=== PATIENT | male | born 1945 | race Caucasian/White ===

== ENCOUNTER 2018-04-06 13:01 | Inpatient (IN) ==
[2018-04-06] MEDS ORDERED: ALBUTEROL/IPRATROPIUM 2.5mg-0.5mg/3ml NEB IH ONE (13:20)
[2018-04-06] MEDS ORDERED: LEVOFLOXACIN PB 750 MG/150 ML BAG IV ONE (13:20)
[2018-04-06] MEDS ORDERED: METHYLPREDNISOLONE SOD SUCC 125mg/2ml INJECTION IVP ONE (13:20)
[2018-04-06] MEDS: SALINE FLUSH 10ml SYRINGE IVF PRN ×3 (13:29→17:08)
[2018-04-06] MEDS ORDERED: IOHEXOL 350mg/ml 75ml INJECTION ONE (13:37)
[2018-04-06] MEDS ORDERED: SALINE FLUSH 10ml SYRINGE ONE (13:37)
--- NOTE | 2018-04-06 13:52 | Emergency Department Report ---
SOB HPI - General Chief Complaint: Shortness of Breath/Dyspnea Stated Complaint: diff breathing Time Seen by Provider: 04/06/18 13:13 Source: patient, family, RN notes reviewed, old records reviewed, other ( Oncologist) - History of Present Illness 72yo man presents to the ER today for evaluation of dyspnea. Pt has a long h/o COPD; was recently dx'ed with a right lung cancer. Pt has not yet started treatment for the cancer. Overnight, pt developed dyspnea, tachypnea, a hacking cough, and air hunger. Pt presented to the ER today at his oncologist's request. MD Complaint: shortness of breath Onset (ago): hour(s) Context: recent illness Severity: severe Consistency/Duration: constant Relieving factors: oxygen, rest, bronchodilators Exacerbating factors: lying flat, exertion, movement, coughing Known history of: COPD, other (Lung CA) Associated symptoms: cough, wheezing, sputum production, other (pleuritic pain) Treatment prior to arrival: oxygen - Related Data Home Medications Medication Instructions Recorded Confirmed Albuterol Sulfate [Proair Hfa] 2 puff INH TID PRN #0 04/21/16 04/06/18 Tiotropium [place] [Spiriva 1 unit INH DAILY #0 06/04/16 04/06/18 Respimat] diphenhydrAMINE HCl [Benadryl] 25 mg PO HS #0 cap 06/04/16 04/06/18 Cholecalciferol (Vitamin D3) 1 cap PO DAILY 06/05/17 04/06/18 [Vitamin D3] Vitamin B Complex Vit C No.4 150 mg PO DAILY 06/05/17 04/06/18 [Super B Complex] Amoxicillin 875 mg PO BID 04/06/18 04/06/18 Folic Acid 0.4 mg PO DAILY 04/06/18 04/06/18 Hydrocodone/Chlorphen P-Stirex 5 ml PO BID PRN 04/06/18 04/06/18 [Hydrocodone-Chlorphen ER Susp] Omeprazole 20 mg PO DAILY 04/06/18 04/06/18 Simvastatin [Zocor] 40 mg PO HS 04/06/18 04/06/18 Tramadol [Ultram] 50 mg PO Q4HR PRN 04/06/18 04/06/18 Allergies Allergy/AdvReac Type Severity Reaction Status Date / Time alprazolam Allergy Unknown RASH Verified 04/06/18 14:11 clonazepam Allergy Unknown RASH Verified 04/06/18 14:11 succinylcholine AdvReac Severe paralysis Verified 04/06/18 14:11 Review of Systems All systems: reviewed and negative except as stated Respiratory: Reports: as per HPI, cough, dyspnea, wheezes. Denies: hemoptysis, stridor PFSH Patient Stated Medical History Cataracts Yes Chronic Obstructive Pulmonary Yes Disease (COPD) Pneumonia Yes Gastroesophageal Reflux Yes: controlled Disease - Social History Smoking status: Former smoker second hand exposure: No Substance use type: does not use Alcohol intake frequency: does not drink Does patient use chewing tobacco?: No Physical Exam - Limitations Limitations: no limitations - General General appearance: alert, in no apparent distress - Normal Exams: Head:: Normocephalic without trauma Eyes:: Pupils are PERRLA w/ EOMI, No scleral icterus, irritation, or foreign bodies noted ENMT:: No facial trauma, nasal exudates, pharyngeal erythema, or exudates are noted Neck:: Full range of motion, without adenopathy Lymphatic:: No lymphadenopathy Musculoskeletal:: No tenderness, or deformity noted Integumentary:: No rashes, hives, or bruising noted Neurological:: Patient is alert, and oriented Psychiatric:: Patient exhibits, appropriate attention - Chest Chest inspection: Present: normal inspection, symmetric chest wall rise. Absent : tenderness, rash - Respiratory Respiratory exam: Present: wheezes, prolonged expiratory phase, crackles. Absent: normal lung sounds bilaterally, respiratory distress, stridor - Cardiovascular Cardiovascular exam: Present: regular rate, normal rhythm, normal heart sounds. Absent: rubs, gallop, clicks - Abdominal Exam Abdominal exam: Present: soft, normal bowel sounds. Absent: distention, tenderness, guarding, rebound, rigidity Course - Consultations Consultation #1: Dr. Hernandez: Will admit for further evaluation and treatment. Time: 15:43 Vital Signs Respiratory Rate 24 04/06/18 13:44 Pulse Oximetry 94 04/06/18 13:44 Respiratory Rate 24 04/06/18 13:44 Pulse Oximetry 94 04/06/18 13:44 Shortness of Breath/Dyspnea - [facility] Narrative Medical decision making narrative: Pt with elevated white count without bandemia, no lactate, and no evidence of sepsis. Pt does have a new-onset O2 requirement. After discussion with Oncologist and Hospitalist will admit pt for further eval and treatment. - Differential Diagnosis Likely: acute exacerbation of chronic obstructive airways disease, congestive heart failure, community acquired pneumonia, pulmonary embolism - Medical Records Attestation: I reviewed the patient's medical records. - Lab Data Attestation: I reviewed the patient's lab results. Result diagrams: 04/06/18 13:31 04/06/18 13:31 Lab Results 04/06/18 Range/Units 13:37 Sample Site L radial ABG pH 7.426 (7.350-7.450) ABG pCO2 39 (34.0-45.0) MMHG ABG pO2 75.2 L (80.0-100.0) MMHG ABG HCO3 25.4 (22.0-26.0) MEQ/L ABG Total CO2 26.6 (23.0-27.0) MEQ/L ABG O2 Saturation 95.3 (95.0-98.0) % ABG Base Excess 1.0 (-2.0-2.0) MMOL/L O2 Delivery Method Cannula FiO2 (liters per min) 2 LPM - Radiology Data Attestation: I reviewed the patient's radiology results. - EKG Data EKG #1 EKG attestation: Yes: I reviewed and interpreted this EKG. EKG shows normal: sinus rhythm, axis, intervals, ST-T waves Rate: tachycardia [place]/QRS: RBBB Disposition Clinical Impression: Hypoxemia Carcinoma of lung Qualifiers: Laterality: right Qualified Code(s): C34.91 - Malignant neoplasm of unspecified part of right bronchus or lung Disposition: [facility] Print Language: Hungarian Condition: Improved Prescriptions: No Action diphenhydrAMINE HCl [Benadryl] 25 mg PO HS #0 cap Simvastatin [Zocor] 40 mg PO HS Folic Acid 0.4 mg PO DAILY Amoxicillin 875 mg PO BID Hydrocodone/Chlorphen P-Stirex [Hydrocodone-Chlorphen ER Susp] 5 ml PO BID PRN PRN Reason: Prn Orders Tramadol [Ultram] 50 mg PO Q4HR PRN PRN Reason: Pain Albuterol Sulfate [Proair Hfa] 2 puff INH TID PRN #0 PRN Reason: Shortness Of Air Tiotropium [place] [Spiriva Respimat] 1 unit INH DAILY #0 Cholecalciferol (Vitamin D3) [Vitamin D3] 1 cap PO DAILY Vitamin B Complex Vit C No.4 [Super B Complex] 150 mg PO DAILY Omeprazole 20 mg PO DAILY Referrals: Rubin Reid MD [Primary Care Provider] - Time of Disposition: 15:55 - Seen By: physician
--- NOTE | 2018-04-06 15:02 | History & Physical Report ---
History of Present Illness Date: 04/06/18 Chief complaint: SOA HPI: Patient is a 72yo recently dx'd with lung cancer who presented to ER with c/o SOA. Pt developed increasing dyspnea and cough overnight and was instructed to present to ER today at the advice of his oncologist, Dr. Luo. Pt states "I felt like I was waterboarded." He reports he has had sxs for the past month or more, but they significantly worsened last night and "I wasn't sure if I was going to make it through the night." States Dr. Luo was planning to start chemo this week. He has a prostate nodule and a PSA which continues to rise and reports he has an upcoming appt with Dr. Berrios regarding this. Review of Systems All systems PM: 10-point ROS was reviewed, no additional remarkable complaints except (fatigue, soa, cough, diaphoresis) Past Medical History Medical History Updates: COPD, GERD, Diverticular disease, Stage 4 lung cancer, L sided prostate nodule, tubular adenoma, HLD Surgical History: T&A 1948. Colonoscopy - tubular adenoma with low-grade dysplasia 06/06. Ganglion cyst removal 1985 Family History: NO FH prostate or colon cancer Father-diverticulitis Brother-malignant tumor of the pharynx Maternal grandfather-leukemia Paternal grandmother -myocardial infarction Family History: As Above - Social History Smoking status: Former smoker (quit 2000. Smoked for 40 years) Substance use type: does not use Alcohol intake: former (quit 11/2016) Household members: spouse Current occupational status: retired Does patient use chewing tobacco?: No Current residence: Apartment/Private Home Social history: PCP - Dr. Reid Onc - Dr. Luo Uro - Dr. Berrios Medications Home Medications Medication Instructions Recorded Confirmed Type Albuterol Sulfate [Proair Hfa] 2 puff INH TID PRN #0 04/21/16 04/06/18 History Tiotropium [place] [Spiriva 1 unit INH DAILY #0 06/04/16 04/06/18 History Respimat] diphenhydrAMINE HCl [Benadryl] 25 mg PO HS #0 cap 06/04/16 04/06/18 History Cholecalciferol (Vitamin D3) 1 cap PO DAILY 06/05/17 04/06/18 History [Vitamin D3] Vitamin B Complex Vit C No.4 150 mg PO DAILY 06/05/17 04/06/18 History [Super B Complex] Amoxicillin 875 mg PO BID 04/06/18 04/06/18 History Folic Acid 0.4 mg PO DAILY 04/06/18 04/06/18 History Hydrocodone/Chlorphen P-Stirex 5 ml PO BID PRN 04/06/18 04/06/18 History [Hydrocodone-Chlorphen ER Susp] Omeprazole 20 mg PO DAILY 04/06/18 04/06/18 History Simvastatin [Zocor] 40 mg PO HS 04/06/18 04/06/18 History Tramadol [Ultram] 50 mg PO Q4HR PRN 04/06/18 04/06/18 History Allergies Allergy/AdvReac Type Severity Reaction Status Date / Time alprazolam Allergy Unknown RASH Verified 04/06/18 14:11 clonazepam Allergy Unknown RASH Verified 04/06/18 14:11 succinylcholine AdvReac Severe paralysis Verified 04/06/18 14:11 Exam Vital Signs: Temperature 97.4 F 04/06/18 13:03 Pulse Rate 114 H 04/06/18 14:30 Respiratory Rate 27 H 04/06/18 14:30 Blood Pressure 131/77 04/06/18 13:48 Pulse Oximetry 94 04/06/18 14:30 Height/Weight/BMI: Height 1.83 m Weight 87.9 kg - Constitutional Present: no acute distress, well nourished, well developed - Routine HEENT Exam Head: Present: normocephalic, atraumatic Eye: Present: EOMI, PERRL ENT: Present: mucous membranes moist, oropharynx clear - Routine Neck Exam Absent: lymphadenopathy, thyromegaly - Routine Respiratory Exam Present: wheezes (coarse throughout with some crackles in RLL) - Routine Cardiovascular Exam Present: RRR, no murmur - Routine Abdominal Exam Present: soft, normoactive bowel sounds. Absent: tenderness, distended - Routine Extremities Exam Present: edema (1+ B/l LE's), normal capillary refill - Routine Skin Exam Present: dry, warm - Routine Neurological Exam Present: alert, oriented X3, CN II-XII intact - Routine Psychiatric Exam Present: normal affect, cooperative Results - Labs CBC & Chem 7: 04/06/18 13:31 04/06/18 13:31 Labs: Laboratory Tests 04/06/18 13:31 Calcium 9.8 Total Bilirubin 0.50 AST 32 ALT 34 Alkaline Phosphatase 156 H Troponin I < 0.012 NT-Pro-B Natriuret Pep 140 Total Protein 7.2 Albumin 3.6 Globulin 3.6 Albumin/Globulin Ratio 1.0 L Plasma Lactate 1.3 Microbiology Results: Microbiology 04/06/18 13:31 Peripheral/Iv Start Blood Culture - Preliminary Culture Initiated - Results Pending 04/06/18 13:45 Peripheral/Iv Start Blood Culture - Preliminary Culture Initiated - Results Pending - ABG Interpretation ABG results: 04/06/18 13:37 ABG pH 7.426 ABG pCO2 39 ABG pO2 75.2 L ABG HCO3 25.4 ABG Total CO2 26.6 ABG O2 Saturation 95.3 ABG Base Excess 1.0 - Imaging and Cardiology CTA chest Additional comments: 1. No evidence for pulmonary embolus. 2. Findings consistent with patient's known right-sided lung carcinoma and presumed post obstructive pneumonitis right lower lobe. Scattered pulmonary nodules are consistent with metastatic disease. PETscan Additional comments: 03/14/18 Impression: 1. Findings of a right hilar area primary lung malignancy with local and regional chanel metastatic disease along with multiple pulmonary metastases. 2. Indeterminate uptake in the left posterior iliac region. Assessment and Plan Assessment and Plan: Assessment Acute respiratory failure with hypoxia Postobstructive pneumonitis/pneumonia Stage 4 Lung cancer SIRS: Tachypnea/Tachycardia/Leukocytosis - POA Anemia COPD GERD Diverticular disease L sided prostate nodule Tubular adenoma w/ low grade dysplasia HLD Plan Admit, IP. Expect LOS to exceed 2 overnights given his acute resp failure requiring O2 and his underlying lung cancer and COPD. CTA chest from ER reviewed. Solumedrol 125mg IV and Levaquin 750mg IV given in ER in addition to Duoneb treatment. Continue Solumedrol and Levaquin. Duonebs, Budesonide, O2. Consult to Dr. Luo. Labs in am - CBC, CMP, LDH and uric acid. SCD's for VTE ppx Full Code. Dr Reid - PCP. Dr. Luo - Onc. DVT Prophylaxis: SCD's GI Prophylaxis: Omeprazole Resuscitation Status: Full Code - Physician Narrative Physician: Gilmer Hernandez MD Narrative: Date: 04/06/18 Time: 1753 Have independently interviewed and examined pt. Chart reviewed. Case discussed with Dr Luo, ED provider, and my PA. Care plan developed with my supervision ; agree with above. Presents to ED secondary to progressive increasing dyspnea. Becoming more SOA and congested with activities. Coughs, but not able to mobilize sputum. Chest wall sore from coughing. Notes f/c off and on. Appetite decreasing and has been losing weight. No nausea. Bowels stable. Notes HR increased. Recently found to have lung CA-anticipates starting treatment this week. Has mass nearly obstructing right main bronchus. With increasing dyspnea and symptoms, presents to ED. CTA without evidence for PE. WBC increased. Pt tachy. Admitted for treatment of lung cancer and post obstructive pneumonitis/pneumonia. Lung: decreased bilaterally, increased wheezing/congestion to left lungs. CV: tachy, regular AB: soft nt MSE: awake alert appropriate Plan: Inpatient admission for treatment of acute hypoxia and post obstructive pneumonitis/pneumonia. With significant tumor burden nearly obstructing right mainstem bronchus, will need Oncological evaluation and start treatment-doubt any gains will be made without Chemo or radiation. Levaquin for pulmonary coverage. Neb treatment. IVF for hydration and renal protection secondary to IV dye use. Monitor lab. Care to return to Dr Reid at time of discharge from [facility] [place]. Hospital Course Summary Disclaimer: The visit summary below is not to be considered part of the above Progress Note. Hospital Course: 04/06/18 Admit, IP. Expect LOS to exceed 2 overnights given his acute resp failure requiring O2 and his underlying lung cancer and COPD. CTA chest from ER reviewed. Solu-Medrol 125mg IV and Levaquin 750mg IV given in ER in addition to DuoNeb treatment. Continue Solu-Medrol and Levaquin. Continue with DuoNeb, Budesonide, O2. Consult to Dr. Luo for oncological evaluation and treatment recommendations. With significant tumor burden at right mainstem bronchus, doubt any gain gain be made without oncological intervention. IVF of 1/2NS for hydration and to provide renal protection secondary to IV contrast. Labs in am - CBC, CMP, LDH and uric acid. SCD's for VTE ppx. Full Code. Dr Reid - PCP. Dr. Luo - Onc.
[2018-04-06] MEDS ORDERED: ACETAMINOPHEN 325 MG TABLET PO PRN (16:41)
[2018-04-06] MEDS ORDERED: TRAMADOL 50 MG TABLET PO PRN (16:41)
[2018-04-06] MEDS ORDERED: BISACODYL 10 MG SUPPOSITORY RECTALLY PRN (16:41)
[2018-04-06 16:43] VITALS: BMI 26.4
[2018-04-06] MEDS: 1/2 NS 1,000 ML IV SCH (17:11)
[2018-04-06] MEDS: BUDESONIDE INH.SOLN 0.5mg/2ml NEB AEROSOL SCH (18:00)
[2018-04-06] MEDS: ALBUTEROL/IPRATROPIUM 2.5mg-0.5mg/3ml NEB AEROSOL SCH (18:00)
[2018-04-06] MEDS: ALBUTEROL/IPRATROPIUM 2.5mg-0.5mg/3ml NEB AEROSOL PRN (22:26)
[2018-04-06] MEDS: DiphenhydrAMINE 25 MG CAPSULE PO SCH (22:49)
[2018-04-06] MEDS: METHYLPREDNISOLONE SOD SUCC 125mg/2ml INJECTION IVP SCH (22:49)
[2018-04-06] MEDS: SIMVASTATIN 40 MG TABLET PO SCH (23:18)
[2018-04-06] MEDS: GUAIFENESIN/D-METHORPHAN 600mg/30mg TABLET PO SCH (23:19)
[2018-04-07] MEDS: ALBUTEROL/IPRATROPIUM 2.5mg-0.5mg/3ml NEB AEROSOL PRN (03:54)
[2018-04-07] MEDS: METHYLPREDNISOLONE SOD SUCC 125mg/2ml INJECTION IVP SCH ×4 (04:02→22:05)
--- NOTE | 2018-04-07 06:38 | Consult Note ---
<Lyssa Godinez - Last Filed: 04/08/18 07:30> Oncology HPI - Data of Consult Patient: new to practice Consult date: 04/07/18 Requesting Physician: Gilmer Hernandez MD Primary Care Provider: Rubin Reid MD - Consult Narrative History of present illness: 72-year-old male, seen recently as new patient for non-small cell lung cancer has received education on anticipated treatment with carboplatin/Keytruda/Alimta , which was to begin next week. Over the weekend had significant increase in dyspnea, increased cough, and air hunger. Spoke with Dr. Luo; instructed to come to the ER. Noted to have elevated white count, no bandemia, no lactate, but new hypoxia requiring oxygen. Found to have post obstructive pneumonia, admitted for supportive care and continued evaluation. At time of intake, he is sitting in a chair. Subjectively verbalizes improved with steroids and antibiotics. Has been seen by radiation oncologist, Dr. Spring; planning to begin radiation therapy. History of Present Illness --Prostate cancer [place] score 6 currently on active surveillance. September PSA 3.8 --03/05/18: CT scan showing mass in the right lower lobe. --03/14/18: PET scan showing uptake in the primary mass, mediastinal nodes, supraclavicular node, other lung nodules and indeterminate uptake in the left posterior iliac region. --03/20/18: Bronchoscopy with biopsy showing a moderately differentiated adenocarcinoma Review of Systems - Constitutional Constitutional: Present: fatigue, weakness - EENT Eyes: Absent: diplopia Mouth/Throat: Absent: sore throat - Cardiovascular Cardiovascular: Present: chest pain (mild chest wall pain with deep inspirations.), dyspnea on exertion - Respiratory Respiratory: Present: cough, dyspnea, dyspnea on exertion - Gastrointestinal Gastrointestinal: Absent: constipation, diarrhea, nausea - Genitourinary Genitourinary: Absent: dysuria, hematuria - Musculoskeletal Musculoskeletal: Absent: arthralgias - Neurological Neurological: Present: weakness. Absent: vertigo - Psychiatric Psychiatric: Absent: anxiety, depression PFSH Patient Stated Medical History Cataracts Yes: bilateral Hearing Loss Yes Chronic Obstructive Pulmonary Yes Disease (COPD) Pneumonia Yes: lots in the past Gastroesophageal Reflux Yes: controlled Disease Other GI Yes: umbilical hernia Hx Incontinence Yes Family History: Paternal cousin w/ bone cancer. Maternal GF had leukemia. No other cancers. Medications Home Medications Medication Instructions Recorded Confirmed Type Albuterol Sulfate [Proair Hfa] 2 puff INH TID PRN #0 04/21/16 04/06/18 History Tiotropium [place] [Spiriva 1 unit INH DAILY #0 06/04/16 04/06/18 History Respimat] diphenhydrAMINE HCl [Benadryl] 25 mg PO HS #0 cap 06/04/16 04/06/18 History Cholecalciferol (Vitamin D3) 1 cap PO DAILY 06/05/17 04/06/18 History [Vitamin D3] Vitamin B Complex Vit C No.4 150 mg PO DAILY 06/05/17 04/06/18 History [Super B Complex] Hydrocodone/Chlorphen P-Stirex 5 ml PO BID PRN 04/06/18 04/06/18 History [Hydrocodone-Chlorphen ER Susp] Omeprazole 20 mg PO DAILY 04/06/18 04/06/18 History Simvastatin [Zocor] 40 mg PO HS 04/06/18 04/06/18 History Tramadol [Ultram] 50 mg PO Q4HR PRN 04/06/18 04/06/18 History Acetaminophen [Tylenol] 650 mg PO Q5H PRN tab 04/09/18 Rx Albuterol/Ipratropium [Duoneb] 3 ml AEROSOL Q4H PRN #120 each 04/09/18 Rx Albuterol/Ipratropium [Duoneb] 3 ml AEROSOL Q4HR #120 each 04/09/18 Rx Folic Acid [Folate] 0.5 mg PO DAILY #30 tab 04/09/18 Rx Guaifenesin/Dm [Mucinex Dm] 1 tab PO BID #30 tab 04/09/18 Rx Levofloxacin [Levaquin] 750 mg PO DAILY 4 Days #4 tab 04/09/18 Rx PredniSONE [Deltasone 20 mg] 40 mg PO WB 5 Days #10 tab 04/09/18 Rx Allergies Allergy/AdvReac Type Severity Reaction Status Date / Time alprazolam Allergy Unknown RASH Verified 04/06/18 14:11 clonazepam Allergy Unknown RASH Verified 04/06/18 14:11 succinylcholine AdvReac Severe paralysis Verified 04/06/18 14:11 Exam Vital signs: Temperature 96.3 F L 04/07/18 07:15 Pulse Rate 107 H 04/07/18 07:20 Respiratory Rate 16 04/07/18 10:54 Blood Pressure 141/78 H 04/07/18 07:15 Pulse Oximetry 93 04/07/18 10:54 - Constitutional no acute distress, well nourished, well developed - Routine HEENT Exam Head: Present: normocephalic Eye: Present: EOMI ENT: Present: mucous membranes moist - Routine Neck Exam Present: supple. Absent: lymphadenopathy - Routine Respiratory Exam Present: decreased breath sounds. Absent: wheezes, crackles - Routine Cardiovascular Exam Present: RRR, no murmur - Routine Abdominal Exam Present: soft, normoactive bowel sounds, non tender. Absent: mass - Routine Extremities Exam Present: no edema, full ROM - Routine Skin Exam Present: intact, dry - Routine Neurological Exam Present: alert, oriented X3, normal speech - Routine Psychiatric Exam Present: normal affect, cooperative Oncology Results - Labs CBC & Chem 7: 04/07/18 03:38 04/07/18 03:38 Labs: Short CBC 04/07/18 Range/Units 03:38 WBC 8.1 (4.5-11.0) T/MM3 Hgb 10.9 L (13.5-17.5) GM/DL Hct 35.0 L (41-53) % Plt Count 324 (130-400) T/MM3 [facility] 04/07/18 03:38 Sodium 139 Potassium 4.1 Chloride 99 Carbon Dioxide 27 BUN 19.0 Creatinine 0.7 L D Glucose 137 H Calcium 9.1 - Impressions Encounter: Subsequent Comparison: Pulmonary CT angiogram 04/06/2018, chest CT 03/05/2018 Technique: Contiguous axial CT images were obtained of the chest without intravenous contrast. Coronal and sagittal reformatted images were also obtained. Automated Exposure Control and Iterative Reconstruction dose reducing techniques were utilized. Findings: Lungs and airways: Bilateral upper lobe predominant paraseptal emphysema. Grossly unchanged large right hilar mass extending into the right middle and lower lobes with post obstructive atelectasis/pneumonitis within the right lower lobe and significant narrowing of the right mainstem bronchus. No endoluminal lesion. Unchanged scattered small pulmonary nodules. Pleura: Trace loculated right pleural effusion. No pneumothorax. Heart and mediastinum: The visualized thyroid gland appears normal. Unchanged prominent right superior retrotracheal lymph node on axial image 32. Unchanged prominent right lower paratracheal lymph node on axial image 53. The visualized esophagus appears normal. The heart is normal in size without pericardial effusion. Coronary arterial and thoracic aortic atherosclerotic calcifications. The great vessels of the thorax are otherwise within normal limits. Abdomen: No acute abnormality of the visualized upper abdominal organs. Osseous structures and soft tissues: No axillary lymphadenopathy. No acute osseous abnormality. No suspicious osteolytic or osteoblastic lesions. Impression: 1. Redemonstration of a large right hilar mass extending into the right middle and lower lobes with significant narrowing of the right mainstem bronchus and postobstructive atelectasis/pneumonitis within the right lower lobe. 2. Unchanged scattered small pulmonary nodules and prominent right paratracheal lymph nodes. 3. Trace loculated right pleural effusion. . Assessment and Plan Assessment and Plan: Seen by Dr. Spring, noted extrinsic and intrinsic obstruction of the right mainstem bronchus; recommends emergency radiation treatment directed to alleviate airway obstruction. Plan to begin this today. Continue supportive care and follow counts. <Ritesh Luo - Last Filed: 04/11/18 18:10> Oncology HPI - Data of Consult Requesting Physician: Gilmer Hernandez MD Primary Care Provider: Rubin Reid MD [facility] Patient Stated Medical History Cataracts Yes: bilateral Hearing Loss Yes Chronic Obstructive Pulmonary Yes Disease (COPD) Pneumonia Yes: lots in the past Gastroesophageal Reflux Yes: controlled Disease Other GI Yes: umbilical hernia Hx Incontinence Yes Medical History Updates: COPD, GERD, Diverticular disease, Stage 4 lung cancer, L sided prostate nodule, tubular adenoma, HLD Surgical History: T&A 1948. Colonoscopy - tubular adenoma with low-grade dysplasia 06/06. Ganglion cyst removal 1985 - Social History Smoking status: Former smoker second hand exposure: No Substance use type: does not use Alcohol intake: former (quit 11/2016) Alcohol intake frequency: does not drink Household members: spouse Current occupational status: retired Does patient use chewing tobacco?: No Current residence: Apartment/Private Home Exam Vital signs: Temperature 95.7 F L 04/06/18 16:55 Pulse Rate 101 H 04/06/18 23:18 Respiratory Rate 18 04/07/18 03:55 Blood Pressure 131/80 04/06/18 23:18 Pulse Oximetry 94 04/07/18 03:55 Oncology Results - Labs CBC & Chem 7: 04/08/18 04:05 04/08/18 04:05 Labs: Short CBC 04/07/18 Range/Units 03:38 WBC 8.1 (4.5-11.0) T/MM3 Hgb 10.9 L (13.5-17.5) GM/DL Hct 35.0 L (41-53) % Plt Count 324 (130-400) T/MM3 BMP 04/07/18 03:38 Sodium 139 Potassium 4.1 Chloride 99 Carbon Dioxide 27 BUN 19.0 Creatinine 0.7 L D Glucose 137 H Calcium 9.1 Assessment and Plan Assessment and Plan: Stage IV non-small cell carcinoma of the lung, adenocarcinoma, large mass in the right lower lobe that is causing obstruction of the right mainstem bronchus and postobstructive pneumonia. Scans have worsened since 03/04/18. Seems to be a greater postobstructive component. Much better today after starting antibiotics and steroids. Multiple lung nodules. These are consistent with metastatic disease. May benefit from XRT to open up the bronchus Will consult Dr. Spring 2. Prostate cancer on active surveillance Recommendations. Antibiiotic Steroids Antineoplastic therapy when infection controlled. Plan for Keytruda, Alimta and Carboplatin Supportive care.
[2018-04-07] MEDS ORDERED: ALBUTEROL/IPRATROPIUM 2.5mg-0.5mg/3ml NEB AEROSOL PRN (06:45)
[2018-04-07] MEDS: OMEPRAZOLE 20 MG CAPSULE PO SCH (07:05)
[2018-04-07] MEDS: 1/2 NS 1,000 ML IV SCH (07:05)
--- NOTE | 2018-04-07 07:24 | CT Scan Report ---
Indication: Hypoxia, tachycardia, new dx lung CA PROCEDURE: CT angio pulm emboli: Encounter: Initial Comparison: Chest CT dated March 05, 2018 Technique: Axial CT pulmonary angiographic phase images were performed through the chest after the administration of intravenous contrast. Coronal and Sagittal MIP reconstructed images were created and reviewed. Automated Exposure Control and Iterative Reconstruction dose reducing techniques were utilized. Contrast: Omnipaque 350 62 mL Findings: Pulmonary arteries: Exam is diagnostic to the subsegmental pulmonary arterial level. No filling defects identified to suggest a pulmonary embolus. Right hilar mass with postobstructive atelectasis/pneumonia has increased in size with numerous surrounding small satellite masses, groundglass opacity in the small right effusion. This area measures 11.5 x 8.2 cm on axial image #35 compared to 8.4 x 7.2 cm when measured at a similar level on the comparison study. Multiple metastatic nodules seen in the left lower lobe and left upper lobe grossly stable. No pneumothorax. There is compression of the right mainstem bronchus and occlusion of several right lower lobe bronchi. No axillary adenopathy. Right hilar adenopathy. Heart size is stable. Small pericardial effusion. The upper abdomen shows no acute findings. Impression: No pulmonary embolus. Enlarging right hilar mass with right lower lobe postobstructive atelectasis/pneumonia and pulmonary and mediastinal chanel metastatic disease. There is a preliminary report by [email or web address]. .
[2018-04-07] MEDS: ALBUTEROL/IPRATROPIUM 2.5mg-0.5mg/3ml NEB AEROSOL SCH ×5 (07:45→23:48)
[2018-04-07] MEDS: BUDESONIDE INH.SOLN 0.5mg/2ml NEB AEROSOL SCH ×2 (07:45→19:56)
[2018-04-07] MEDS: FOLIC ACID 1 MG TABLET PO SCH (08:43)
[2018-04-07] MEDS: GUAIFENESIN/D-METHORPHAN 600mg/30mg TABLET PO SCH ×2 (08:43→22:05)
[2018-04-07] MEDS ORDERED: NON-FORMULARY MEDICATION 1 EACH EACH (Folic Acid [Folic Acid] 0.4 MG) PO SCH (09:00)
[2018-04-07] MEDS ORDERED: NON-FORMULARY MEDICATION 1 EACH EACH (Omeprazole [Omeprazole] 20 MG) PO SCH (09:00)
--- NOTE | 2018-04-07 11:58 | CT Scan Report ---
Indication: lung cancer Procedure: CT limited,localized follow-up: Encounter: Subsequent Comparison: Pulmonary CT angiogram 04/06/2018, chest CT 03/05/2018 Technique: Contiguous axial CT images were obtained of the chest without intravenous contrast. Coronal and sagittal reformatted images were also obtained. Automated Exposure Control and Iterative Reconstruction dose reducing techniques were utilized. Findings: Lungs and airways: Bilateral upper lobe predominant paraseptal emphysema. Grossly unchanged large right hilar mass extending into the right middle and lower lobes with post obstructive atelectasis/pneumonitis within the right lower lobe and significant narrowing of the right mainstem bronchus. No endoluminal lesion. Unchanged scattered small pulmonary nodules. Pleura: Trace loculated right pleural effusion. No pneumothorax. Heart and mediastinum: The visualized thyroid gland appears normal. Unchanged prominent right superior retrotracheal lymph node on axial image 32. Unchanged prominent right lower paratracheal lymph node on axial image 53. The visualized esophagus appears normal. The heart is normal in size without pericardial effusion. Coronary arterial and thoracic aortic atherosclerotic calcifications. The great vessels of the thorax are otherwise within normal limits. Abdomen: No acute abnormality of the visualized upper abdominal organs. Osseous structures and soft tissues: No axillary lymphadenopathy. No acute osseous abnormality. No suspicious osteolytic or osteoblastic lesions. Impression: 1. Redemonstration of a large right hilar mass extending into the right middle and lower lobes with significant narrowing of the right mainstem bronchus and postobstructive atelectasis/pneumonitis within the right lower lobe. 2. Unchanged scattered small pulmonary nodules and prominent right paratracheal lymph nodes. 3. Trace loculated right pleural effusion. .
[2018-04-07] MEDS: LEVOFLOXACIN PB 750 MG/150 ML BAG IV SCH (13:05)
--- NOTE | 2018-04-07 16:32 | Progress Note ---
- Date 04/07/18 Subjective: Patient seen sitting in his room this afternoon. He reports he is feeling much better since admission. He still has a decent amount of pain when he coughs, but he feels he can breathe better. He had an appt with the radiation oncologist this am and had his first round of radiation this afternoon. No n/v/f /c. Objective Vital signs: Temperature 97.6 F 04/07/18 16:00 Pulse Rate 113 H 04/07/18 16:00 Respiratory Rate 18 04/07/18 16:00 Blood Pressure 124/72 04/07/18 16:00 Pulse Oximetry 94 04/07/18 16:00 Height/Weight/BMI: Height 1.83 m Weight 88.8 kg Body Mass Index 26.4 - Constitutional Present: no acute distress, well nourished, well developed - Routine HEENT Exam Head: Present: normocephalic, atraumatic - Routine Respiratory Exam Present: decreased breath sounds (RLL), CTA bilaterally. Absent: wheezes - Routine Cardiovascular Exam Present: no murmur, tachycardia (mild) - Routine Abdominal Exam Present: soft, non distended, non tender - Routine Extremities Exam Present: no edema, normal capillary refill - Routine Skin Exam Present: dry, warm - Routine Neurological Exam Present: alert, oriented X3 - Routine Lymphatic Exam Lymphatic: Absent: adenopathy - Routine Psychiatric Exam Present: normal affect, cooperative Results - Labs CBC & Chem 7: 04/07/18 03:38 04/07/18 03:38 Assessment and Plan Assessment and Plan: Assessment Acute respiratory failure with hypoxia Postobstructive pneumonitis/pneumonia Stage 4 Lung cancer Significant narrowing of the right mainstem secondary to tumor bronchus SIRS: Tachypnea/Tachycardia/Leukocytosis - POA Anemia COPD GERD Diverticular disease Prostate cancer ([place] Score 6 - on active surveillance. (PSA 3.8 on 10/06) Tubular adenoma w/ low grade dysplasia HLD Plan Had "limited CT chest follow up" and first radiation treatment today. CT remains significant for large R hilar mass extending into the right middle/ lower lobes with significant narrowing of the R mainstem bronchus and postobstructive atelectasis/pneumonitis within the RLL. Continue IVF's for renal protection secondary to repeat IV dye use as pt had CTA performed yesterday as well. Consider DC IVF's later today or tomorrow as he has good renal function and is taking po well. Leukocytosis resolved 13.2-->8.1. BMP stable. Remains tachycardic. Other vitals stable. On room air this afternoon. (Not on home O2). Day 2 of Levaquin and methylprednisolone. Continue Duonebs, budesonide. DVT Prophylaxis: SCD's Resuscitation Status: Full Code - Time spent with patient Time with patient PN: 25 minutes - Physician Narrative Physician: Gilmer Hernandez MD Narrative: Date: 04/07/18 Time: 1826 Have independently interviewed and examined pt. Chart reviewed. Case discussed with my PA. Care plan developed with my supervision; agree with above. Doing well this evening. Breathing improving. Neb treatments very helpful-would like DuoNeb every 4 hours for benefit. Still cough/congestion. Less SOA with O2. Very encouraged about starting radiation to get at the root of his problem. Eating well. No ab pain or nausea. Bowels stable. Lungs: decreased, no distress CV: regular AB: soft nt/nd MSE: awake alert appropriate Plan: Continue with antibiotics, steroids, and Neb treatment. Very encouraging that radiation able to be started-critically needed secondary to tumor location. Can stop IVF. Monitor lab. Continue with supportive care. Hospital Course Summary Disclaimer: The visit summary below is not to be considered part of the above Progress Note. Hospital Course: 04/06/18 Admit, IP. Expect LOS to exceed 2 overnights given his acute resp failure requiring O2 and his underlying lung cancer and COPD. CTA chest from ER reviewed. Solu-Medrol 125mg IV and Levaquin 750mg IV given in ER in addition to DuoNeb treatment. Continue Solu-Medrol and Levaquin. Continue with DuoNeb, Budesonide, O2. Consult to Dr. Luo for oncological evaluation and treatment recommendations. With significant tumor burden at right mainstem bronchus, doubt any gain gain be made without oncological intervention. IVF of 1/2NS for hydration and to provide renal protection secondary to IV contrast. Labs in am - CBC, CMP, LDH and uric acid. SCD's for VTE ppx. Full Code. Dr Reid - PCP. Dr. Luo - Onc. 04/07/[address] chest follow up" and first radiation treatment today. CT remains significant for large R hilar mass extending into the right middle/ lower lobes with significant narrowing of the R mainstem bronchus and postobstructive atelectasis/pneumonitis within the RLL. Continue IVF's for renal protection secondary to repeat IV dye use as pt had CTA performed yesterday as well. Consider DC IVF's later today or tomorrow as he has good renal function and is taking po well. Leukocytosis resolved 13.2-->8.1. BMP stable. Remains tachycardic. Other vitals stable. On room air this afternoon. (Not on home O2). Day 2 of Levaquin and methylprednisolone.
[2018-04-07] MEDS: SIMVASTATIN 40 MG TABLET PO SCH (22:04)
[2018-04-07] MEDS: DiphenhydrAMINE 25 MG CAPSULE PO SCH (22:04)
[2018-04-07] MEDS: PROMETHAZINE/CODEINE ORAL LIQUID 5ml PO PRN (22:05)
[2018-04-08] MEDS: ALBUTEROL/IPRATROPIUM 2.5mg-0.5mg/3ml NEB AEROSOL SCH ×5 (03:38→22:51)
[2018-04-08] MEDS: METHYLPREDNISOLONE SOD SUCC 125mg/2ml INJECTION IVP SCH ×4 (04:13→22:02)
[2018-04-08] MEDS: OMEPRAZOLE 20 MG CAPSULE PO SCH (06:54)
[2018-04-08] MEDS: BUDESONIDE INH.SOLN 0.5mg/2ml NEB AEROSOL SCH ×2 (07:06→18:59)
[2018-04-08] MEDS: GUAIFENESIN/D-METHORPHAN 600mg/30mg TABLET PO SCH ×2 (08:26→22:02)
[2018-04-08] MEDS: FOLIC ACID 1 MG TABLET PO SCH (08:26)
[2018-04-08] MEDS: SALINE FLUSH 10ml SYRINGE IVF PRN ×2 (08:27→14:30)
--- NOTE | 2018-04-08 11:00 | Progress Note ---
<Lyssa Godinez L - Last Filed: 04/08/18 11:56> Oncology Subjective Sitting in chair. Alert/oriented. Reports 50% improvement in lung function/less shortness of breath/less coughing. No nausea/vomiting. No diarrhea constipation. General: No fever, no night sweats Eyes: No redness, no pain, no diplopia ENT: No mouth sores, no trouble swallowing Cardiac: No chest pain no palpitations Pulmonary: + cough, + shortness of breath, no wheezing Abdomen: No pain, no nausea vomiting, no diarrhea or constipation : No urgency, frequency, dysuria, or hematuria Musculoskeletal: No arthritis, no myalgias Neurological: No headaches, no focal weakness Skin: No rash, no sores Psychiatric: No anxiety, no depression Exam Vital signs: Temperature 97.6 F 04/08/18 07:56 Pulse Rate 96 04/08/18 08:03 Respiratory Rate 18 04/08/18 07:56 Blood Pressure 120/69 04/08/18 07:56 Pulse Oximetry 93 04/08/18 07:56 Narrative: Generic Name Dose Route Start Last Admin Trade Name Bonillaq PRN Reason Stop Dose Admin Acetaminophen 650 mg 04/06/18 16:41 Tylenol PO Q5H PRN Discomfort Albuterol/Ipratropium 3 ml 04/07/18 06:45 Duoneb AEROSOL Q4H PRN Shortness of air Albuterol/Ipratropium 3 ml 04/07/18 16:00 04/08/18 07:06 Duoneb AEROSOL 3 ml Q4HR OMAR Administration Bisacodyl 10 mg 04/06/18 16:41 Dulcolax RECTALLY DAILY PRN Constipation Budesonide 0.5 mg 04/06/18 19:00 04/08/18 07:06 Pulmicort Inhalation AEROSOL 0.5 mg RTBID OMAR Administration Diphenhydramine HCl 25 mg 04/06/18 21:00 04/07/18 22:04 Benadryl PO 25 mg HS OMAR Administration Folic Acid 0.5 mg 04/07/18 09:00 04/08/18 08:26 Folate PO 0.5 mg DAILY OMAR Administration Guaifenesin/Dextromethorphan 1 tab 04/06/18 21:00 04/08/18 08:26 Mucinex Dm PO 1 tab BID OMAR Administration Levofloxacin/Dextrose 750 mg in 150 mls @ 100 mls/hr 04/07/18 14:00 04/07/18 14:48 Levaquin 750 Mg Premix IV Infused Q24H OMAR Infusion Magnesium Hydroxide 30 ml 04/06/18 16:41 Mom PO DAILY PRN Constipation Methylprednisolone Sodium Succinate 125 mg 04/06/18 21:00 04/08/18 08:26 Solu-Medrol IVP 125 mg Q6HR OMAR Administration Omeprazole 20 mg 04/07/18 06:30 04/08/18 06:54 Prilosec PO 20 mg ACB OMAR Administration Promethazine HCl/Codeine 5 ml 04/06/18 16:41 04/07/18 22:05 Phenergan + Codeine PO 5 ml Q4H PRN Administration Cough Simvastatin 40 mg 04/06/18 21:00 04/07/18 22:04 Zocor PO 40 mg HS OMAR Administration Sodium Chloride 10 - 80 ml 04/06/18 13:20 04/08/18 08:27 Iv Flush IVF 10 ml PRN PRN Administration Flushing Tramadol HCl 50 mg 04/06/18 16:41 Ultram PO Q4H PRN Pain Discontinued Medications Generic Name Dose Route Start Last Admin Trade Name Freq PRN Reason Stop Dose Admin Albuterol/Ipratropium 3 ml 04/06/18 13:20 04/06/18 13:25 Duoneb IH 04/06/18 13:21 3 ml ONCE ONE Administration Albuterol/Ipratropium 3 ml 04/06/18 19:00 04/07/18 10:53 Duoneb AEROSOL 3 ml RTQID OMAR Administration Albuterol/Ipratropium 3 ml 04/06/18 16:41 04/07/18 03:54 Duoneb AEROSOL 3 ml Q4HR PRN Administration Shortness of air Levofloxacin/Dextrose 750 mg in 150 mls @ 100 mls/hr 04/06/18 13:20 04/06/18 15:46 Levaquin 750 Mg Premix IV 04/06/18 14:49 Infused O ONE Infusion Sodium Chloride 1,000 mls @ 75 mls/hr 04/06/18 16:41 04/07/18 19:08 1/2 Normal Saline IV Infused .[id number] OMAR Infusion Methylprednisolone Sodium Succinate 125 mg 04/06/18 13:20 06/17/18 13:34 Solu-Medrol IVP 04/06/18 13:21 125 mg O ONE Administration Non-Formulary Medication 0.4 mg 04/07/18 09:00 Folic Acid [Folic Acid] PO DAILY OMAR Non-Formulary Medication 20 mg 04/07/18 09:00 Omeprazole [Omeprazole] PO DAILY OMAR - Constitutional no acute distress, well developed, cooperative - Routine HEENT Exam Head: Present: normocephalic Eye: Present: EOMI ENT: Present: mucous membranes moist - Routine Neck Exam Present: supple. Absent: lymphadenopathy - Routine Respiratory Exam Present: decreased breath sounds (rhonchi bilateral posterior.), rhonchi. Absent: wheezes, crackles - Routine Cardiovascular Exam Present: RRR, no murmur - Routine Abdominal Exam Present: soft, non tender. Absent: mass - Routine Back/Spine/Pelvis Exam Back/Spine: Absent: vertebral tenderness - Routine Skin Exam Present: intact, dry. Absent: rash - Routine Neurological Exam Present: alert, oriented X3 - Routine Psychiatric Exam Present: normal affect, cooperative Oncology Results - Labs CBC & Chem 7: 04/08/18 04:05 04/08/18 04:05 Labs: Short CBC 04/08/18 Range/Units 04:05 WBC 13.3 H D (4.5-11.0) T/MM3 Hgb 11.7 L (13.5-17.5) GM/DL Hct 37.0 L (41-53) % Plt Count 338 (130-400) T/MM3 [facility] 04/08/18 04:05 Sodium 141 Potassium 3.8 Chloride 101 Carbon Dioxide 29 BUN 24.0 H Creatinine 0.8 Glucose 166 H Calcium 9.4 Assessment and Plan Assessment and Plan: 1. 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 Emergency radiation treatment directed to alleviate airway obstruction; initiated 04/07/18. 2. Prostate cancer on active surveillance 3. COPD Plan Continue supportive care, radiation treatment. Has not seen Dr. Melgar since bronchoscopy. Discussed w/ Dr. Luo and Dr. Salomon; she will send consult for pulmonology. Note, patient does not have home nebulizer. - Time Spent With Patient Total time spent is greater than 50% in coordination of care (as documented) at patient's floor/unit and/or counseling patient: less than 15 minutes <Ritesh Luo - Last Filed: 04/08/18 22:16> Exam Vital signs: Temperature 95.4 F L 04/08/18 15:44 Pulse Rate 84 04/08/18 16:01 Respiratory Rate 18 04/08/18 18:59 Blood Pressure 134/81 04/08/18 15:44 Pulse Oximetry 98 04/08/18 15:44 Oncology Results - Labs CBC & Chem 7: 04/08/18 04:05 04/08/18 04:05 Labs: Short CBC 04/08/18 Range/Units 04:05 WBC 13.3 H D (4.5-11.0) T/MM3 Hgb 11.7 L (13.5-17.5) GM/DL Hct 37.0 L (41-53) % Plt Count 338 (130-400) T/MM3 BMP 04/08/18 04:05 Sodium 141 Potassium 3.8 Chloride 101 Carbon Dioxide 29 BUN 24.0 H Creatinine 0.8 Glucose 166 H Calcium 9.4 Assessment and Plan Assessment and Plan: Patiient seen Chart Reviewed. Patient breathing easier after XRT. Will hold on chemotherapy as this may increase edema that may worsen breathing. Will continue supportive care and steroids. - Time Spent With Patient Total time spent is greater than 50% in coordination of care (as documented) at patient's floor/unit and/or counseling patient:
--- NOTE | 2018-04-08 13:03 | Pulmonology Consult Note ---
History of Present Illness Consult date: 04/08/18 Requesting physician: Donn Blanton Reason for consult: dyspnea, lung mass Chief complaint: shortness of breath History of present illness: Patient is a 72 year old with NSCLCA (adenocarcinoma) under the care of Dr Luo. He has GOLD stage B COPD, past smoking history. He presented to the ER with c/o SOA. Pt developed increasing dyspnea and cough overnight and was instructed to present to ER at the advice of his oncologist, Dr. Luo. Pt states "I felt like I was waterboarded." He reports he has had sxs for the past month or more, but they significantly worsened last night and "I wasn't sure if I was going to make it through the night." States Dr. Luo was planning to start chemo this week. He has a prostate nodule and a PSA which continues to rise and reports he has an upcoming appt with Dr. Berrios regarding this. Dr Luo reports 72-year-old male, seen recently as new patient for non-small cell lung cancer has received education on anticipated treatment with carboplatin/Keytruda/Alimta, which was to begin next week. Over the weekend had significant increase in dyspnea, increased cough, and air hunger. Spoke with Dr. Luo; instructed to come to the ER. Noted to have elevated white count, no bandemia, no lactate, but new hypoxia requiring oxygen. Found to have post obstructive pneumonia, admitted for supportive care and continued evaluation. At time of intake, he is sitting in a chair. Subjectively verbalizes improved with steroids and antibiotics. Has been seen by radiation oncologist, Dr. Spring; planning to begin radiation therapy. [facility] Patient Stated Medical History Cataracts Yes: bilateral Hearing Loss Yes Chronic Obstructive Pulmonary Yes Disease (COPD) Pneumonia Yes: lots in the past Gastroesophageal Reflux Yes: controlled Disease Other GI Yes: umbilical hernia Hx Incontinence Yes Medical History Updates: COPD, GERD, Diverticular disease, Stage 4 lung cancer, L sided prostate nodule, tubular adenoma, HLD Surgical History: T&A 1948. Colonoscopy - tubular adenoma with low-grade dysplasia 06/06. Ganglion cyst removal 1985 - Social History Smoking status: Former smoker second hand exposure: No Substance use type: does not use Alcohol intake: former (quit 11/2016) Alcohol intake frequency: does not drink Household members: spouse Current occupational status: retired Does patient use chewing tobacco?: No Current residence: Apartment/Private Home Medications Home Medications Medication Instructions Recorded Confirmed Type Albuterol Sulfate [Proair Hfa] 2 puff INH TID PRN #0 04/21/16 04/06/18 History Tiotropium [place] [Spiriva 1 unit INH DAILY #0 06/04/16 04/06/18 History Respimat] diphenhydrAMINE HCl [Benadryl] 25 mg PO HS #0 cap 06/04/16 04/06/18 History Cholecalciferol (Vitamin D3) 1 cap PO DAILY 06/05/17 04/06/18 History [Vitamin D3] Vitamin B Complex Vit C No.4 150 mg PO DAILY 06/05/17 04/06/18 History [Super B Complex] Amoxicillin 875 mg PO BID 04/06/18 04/06/18 History Folic Acid 0.4 mg PO DAILY 04/06/18 04/06/18 History Hydrocodone/Chlorphen P-Stirex 5 ml PO BID PRN 04/06/18 04/06/18 History [Hydrocodone-Chlorphen ER Susp] Omeprazole 20 mg PO DAILY 04/06/18 04/06/18 History Simvastatin [Zocor] 40 mg PO HS 04/06/18 04/06/18 History Tramadol [Ultram] 50 mg PO Q4HR PRN 04/06/18 04/06/18 History Allergies Allergy/AdvReac Type Severity Reaction Status Date / Time alprazolam Allergy Unknown RASH Verified 04/06/18 14:11 clonazepam Allergy Unknown RASH Verified 04/06/18 14:11 succinylcholine AdvReac Severe paralysis Verified 04/06/18 14:11 Exam Vital signs: Temperature 97.6 F 04/08/18 07:56 Pulse Rate 96 04/08/18 08:03 Respiratory Rate 18 04/08/18 07:56 Blood Pressure 120/69 04/08/18 07:56 Pulse Oximetry 93 04/08/18 07:56 - Constitutional no acute distress - Routine HEENT Exam Head: Present: normocephalic, atraumatic Eye: Present: EOMI ENT: Present: mucous membranes moist Nose: moist mucous membranes - Routine Respiratory Exam Present: prolonged expiratory phase, wheezes. Absent: accessory muscle use - Routine Cardiovascular Exam Present: RRR - Routine Abdominal Exam Present: soft. Absent: guarding - Routine Extremities Exam Absent: cyanosis, clubbing, edema - Routine Skin Exam Absent: cyanosis - Routine Neurological Exam Present: alert, oriented X3 Results - Laboratory Findings CBC and BMP: 04/08/18 04:05 04/08/18 04:05 ABG ABG pH 7.426 (7.350-7.450) 04/06/18 13:37 ABG pCO2 39 MMHG (34.0-45.0) 04/06/18 13:37 ABG pO2 75.2 MMHG (80.0-100.0) L 04/06/18 13:37 ABG O2 Saturation 95.3 % (95.0-98.0) 04/06/18 13:37 Abnormal lab findings: Abnormal Labs 04/07/18 04/07/18 04/07/18 03:38 03:38 03:38 WBC RBC 4.24 L Hgb 10.9 L Hct 35.0 L MCH 25.7 L Neutrophils % (Manual) 92.0 H Lymphocytes % (Manual) 6.0 L Metamyelocytes % 1.0 H Neutrophils # (Manual) Lymphocytes # (Manual) 0.5 L BUN Creatinine 0.7 L D BUN/Creatinine Ratio 27 H Glucose 137 H Carcinoembryonic Ag 4.19 H TSH 04/07/18 04/08/18 04/08/18 03:38 04:05 04:05 WBC 13.3 H D RBC 4.48 L Hgb 11.7 L Hct 37.0 L MCH Neutrophils % (Manual) 96.0 H Lymphocytes % (Manual) 4.0 L Metamyelocytes % Neutrophils # (Manual) 12.8 H Lymphocytes # (Manual) 0.5 L BUN 24.0 H Creatinine BUN/Creatinine Ratio 30 H Glucose 166 H Carcinoembryonic Ag TSH 0.34 L - Diagnostic Findings Chest x-ray: report reviewed, image reviewed CT scan - chest: report reviewed, image reviewed Assessment and Plan (1) Non-small cell cancer of right lung Status: Acute Assessment and plan: 1. Lung mass - This patient has an abnormal CT scan demonstrating: large right hilar mass lesion. It appears to surround and narrow the RUL bronchus. The bulk of the tumor is posterior and abuts the spine. The right main pulmonary artery courses through the tumor, but appears to be patent. There are innumerable subcentimeter nodules throughout the right lung and to a lesser degree the left lung as well. The findings from bronchoscopy show extensive NSCLCA (AdenoCA) with distant mets local invasion, particularly in the RUL. I have recommended a consultation with oncology, and he is under Dr Luo's care at this time. He will need a CT/PET and likely brain imaging under the direction of oncology. I have contacted Dr Luo and he will see the patient in the next couple of weeks. Current Visit: Yes (2) COPD (chronic obstructive pulmonary disease) Status: Acute Assessment and plan: Chronic obstructive pulmonary disease - After reviewing this patient's subjective and objective findings, including history, examination, PFT, and imaging studies, I believe this patient has moderate COPD with FEV1 60 %. GOLD Stage B and is Moderate risk for exacerbation or complications related to COPD. He is worsened by RUL obstruction from carcinoma. We sent Rx's for neb treatments to have at home, however the [email or web address] order company did not fulfill the order which is why the treatments were not delivered to him. He needs a new Rx for a neb machine as well as albuterol/iprat QID, budesonide BID. We will get his nebs ordered through [facility] [place] and will see him as an outpatient for O2 check. Current Visit: Yes - Time Spent With Patient Total time spent is greater than 50% in coordination of care (as documented) at patient's floor/unit and/or counseling patient: less than 15 minutes
[2018-04-08] MEDS: LEVOFLOXACIN PB 750 MG/150 ML BAG IV SCH (14:30)
--- NOTE | 2018-04-08 16:25 | Progress Note ---
- Date 04/08/18 Subjective: Pt feeling well overall, desiring to go home when able. No fever or chills. He remains on O2. No N/V/CP. Objective Vital signs: Temperature 95.4 F L 04/08/18 15:44 Pulse Rate 97 04/08/18 15:44 Respiratory Rate 18 04/08/18 15:44 Blood Pressure 134/81 04/08/18 15:44 Pulse Oximetry 98 04/08/18 15:44 Height/Weight/BMI: Height 6 ft Weight 88.9 kg Body Mass Index 26.4 - Constitutional Present: no acute distress, well developed - Routine HEENT Exam Head: Present: normocephalic, atraumatic Eye: Present: EOMI, PERRL ENT: Present: mucous membranes moist, oropharynx clear, external ear normal - Routine Respiratory Exam Absent: CTA bilaterally, wheezes, crackles Comments: Diminished breath sound right base. - Routine Cardiovascular Exam Present: RRR. Absent: murmur, gallop, rubs - Routine Abdominal Exam Present: soft, normoactive bowel sounds, non distended, non tender. Absent: organomegaly - Routine Extremities Exam Present: full ROM, normal capillary refill. Absent: cyanosis, edema - Routine Skin Exam Present: intact, dry. Absent: jaundice, rash - Routine Neurological Exam Present: alert, oriented X3, CN II-XII intact, moving all extremities (5/5 strength). Absent: altered mental status - Routine Psychiatric Exam Present: normal affect. Absent: depressed, anxious Results - Labs CBC & Chem 7: 04/08/18 04:05 04/08/18 04:05 Assessment and Plan Assessment and Plan: Assessment Acute respiratory failure with hypoxia Postobstructive pneumonitis/pneumonia Stage 4 Lung cancer Significant narrowing of the right mainstem secondary to tumor bronchus SIRS: Tachypnea/Tachycardia/Leukocytosis - POA Anemia COPD GERD Diverticular disease Prostate cancer (Spring Score 6 - on active surveillance. (PSA 3.8 on 10/06) Tubular adenoma w/ low grade dysplasia HLD Plan Post-obstructive PNA: Continue levaquin 750mg IV daily. Suspect increase in leukocytosis at least somewhat related to steroids. Pt remains afebrile. Cont solu-medrol. Cont duonebs, budesonide. Stage 4 NSCLC: Today was day 2 of radiation to attempt reducing in size. Plan per pt report is to undergo a week of radiation treatments. SIRS: REsolved. FEN: Gen diet. Dispo: Likely home tomorrow. - Physician Narrative Narrative: Date: 04/08/18 Time: 1621 Hospital Course Summary Disclaimer: The visit summary below is not to be considered part of the above Progress Note. Hospital Course: 04/06/18 Admit, IP. Expect LOS to exceed 2 overnights given his acute resp failure requiring O2 and his underlying lung cancer and COPD. CTA chest from ER reviewed. Solu-Medrol 125mg IV and Levaquin 750mg IV given in ER in addition to DuoNeb treatment. Continue Solu-Medrol and Levaquin. Continue with DuoNeb, Budesonide, O2. Consult to Dr. Luo for oncological evaluation and treatment recommendations. With significant tumor burden at right mainstem bronchus, doubt any gain gain be made without oncological intervention. IVF of 1/2NS for hydration and to provide renal protection secondary to IV contrast. Labs in am - CBC, CMP, LDH and uric acid. SCD's for VTE ppx. Full Code. Dr Reid - PCP. Dr. Luo - Onc. 04/07/[address] "limited CT chest follow up" and first radiation treatment today. CT remains significant for large R hilar mass extending into the right middle/ lower lobes with significant narrowing of the R mainstem bronchus and postobstructive atelectasis/pneumonitis within the RLL. Continue IVF's for renal protection secondary to repeat IV dye use as pt had CTA performed yesterday as well. Consider DC IVF's later today or tomorrow as he has good renal function and is taking po well. Leukocytosis resolved 13.2-->8.1. BMP stable. Remains tachycardic. Other vitals stable. On room air this afternoon. (Not on home O2). Day 2 of Levaquin and methylprednisolone. 04/08: Continueing with levaquin and solu-medrol, weaning down on O2 as able.
[2018-04-08] MEDS: PROMETHAZINE/CODEINE ORAL LIQUID 5ml PO PRN (22:02)
[2018-04-08] MEDS: DiphenhydrAMINE 25 MG CAPSULE PO SCH (22:03)
[2018-04-08] MEDS: SIMVASTATIN 40 MG TABLET PO SCH (22:03)
[2018-04-09 00:16] VITALS: TEMP 95.9
[2018-04-09] MEDS: METHYLPREDNISOLONE SOD SUCC 125mg/2ml INJECTION IVP SCH ×2 (03:25→09:55)
[2018-04-09] MEDS: ALBUTEROL/IPRATROPIUM 2.5mg-0.5mg/3ml NEB AEROSOL SCH ×4 (04:49→11:57)
[2018-04-09] MEDS: OMEPRAZOLE 20 MG CAPSULE PO SCH (06:00)
[2018-04-09] MEDS: BUDESONIDE INH.SOLN 0.5mg/2ml NEB AEROSOL SCH (08:23)
--- NOTE | 2018-04-09 09:01 | Pulmonology Progress Note ---
Subjective Interval history: up to chair. feels ready to go home. on 2 lpm O2. Exam Vital signs: Temperature 95.9 F L 04/09/18 00:00 Pulse Rate 91 04/09/18 00:00 Respiratory Rate 14 04/09/18 08:25 Blood Pressure 139/78 04/09/18 00:00 Pulse Oximetry 97 04/09/18 08:25 Inpatient Medications: Generic Name Dose Route Start Last Admin Trade Name Freq PRN Reason Stop Dose Admin Acetaminophen 650 mg 04/06/18 16:41 Tylenol PO Q5H PRN Discomfort Albuterol/Ipratropium 3 ml 04/07/18 06:45 Duoneb AEROSOL Q4H PRN Shortness of air Albuterol/Ipratropium 3 ml 04/07/18 16:00 04/09/18 08:23 Duoneb AEROSOL 3 ml Q4HR OMAR Administration Bisacodyl 10 mg 04/06/18 16:41 Dulcolax RECTALLY DAILY PRN Constipation Budesonide 0.5 mg 04/06/18 19:00 04/09/18 08:23 Pulmicort Inhalation AEROSOL 0.5 mg RTBID OMAR Administration Diphenhydramine HCl 25 mg 04/06/18 21:00 04/08/18 22:03 Benadryl PO 25 mg HS OMAR Administration Folic Acid 0.5 mg 04/07/18 09:00 04/08/18 08:26 Folate PO 0.5 mg DAILY OMAR Administration Guaifenesin/Dextromethorphan 1 tab 04/06/18 21:00 04/08/18 22:02 Mucinex Dm PO 1 tab BID OMAR Administration Levofloxacin/Dextrose 750 mg in 150 mls @ 100 mls/hr 04/07/18 14:00 04/08/18 16:00 Levaquin 750 Mg Premix IV Infused Q24H OMAR Infusion Magnesium Hydroxide 30 ml 04/06/18 16:41 Mom PO DAILY PRN Constipation Methylprednisolone Sodium Succinate 125 mg 04/06/18 21:00 04/09/18 03:25 Solu-Medrol IVP 125 mg Q6HR OMAR Administration Omeprazole 20 mg 04/07/18 06:30 04/09/18 06:00 Prilosec PO 20 mg ACB OMAR Administration Promethazine HCl/Codeine 5 ml 04/06/18 16:41 04/08/18 22:02 Phenergan + Codeine PO 5 ml Q4H PRN Administration Cough Simvastatin 40 mg 04/06/18 21:00 04/08/18 22:03 Zocor PO 40 mg HS OMAR Administration Sodium Chloride 10 - 80 ml 04/06/18 13:20 04/08/18 14:30 Iv Flush IVF 20 ml PRN PRN Administration Flushing Tramadol HCl 50 mg 04/06/18 16:41 Ultram PO Q4H PRN Pain Discontinued Medications Generic Name Dose Route Start Last Admin Trade Name Freq PRN Reason Stop Dose Admin Albuterol/Ipratropium 3 ml 04/06/18 13:20 04/06/18 13:25 Duoneb IH 04/06/18 13:21 3 ml ONCE ONE Administration Albuterol/Ipratropium 3 ml 04/06/18 19:00 04/07/18 10:53 Duoneb AEROSOL 3 ml RTQID OMAR Administration Albuterol/Ipratropium 3 ml 04/06/18 16:41 04/07/18 03:54 Duoneb AEROSOL 3 ml Q4HR PRN Administration Shortness of air Levofloxacin/Dextrose 750 mg in 150 mls @ 100 mls/hr 04/06/18 13:20 04/06/18 15:46 Levaquin 750 Mg Premix IV 04/06/18 14:49 Infused O ONE Infusion Sodium Chloride 1,000 mls @ 75 mls/hr 04/06/18 16:41 04/07/18 19:08 1/2 Normal Saline IV Infused .[id number] OMAR Infusion Methylprednisolone Sodium Succinate 125 mg 04/06/18 13:20 04/06/18 13:34 Solu-Medrol IVP 04/06/18 13:21 125 mg O ONE Administration Non-Formulary Medication 0.4 mg 04/07/18 09:00 Folic Acid [Folic Acid] PO DAILY [facility] Non-Formulary Medication 20 mg 04/07/18 09:00 Omeprazole [Omeprazole] PO DAILY [facility] - Constitutional no acute distress - Routine HEENT Exam Head: Present: normocephalic, atraumatic Eye: Absent: conjunctival icterus - Routine Neck Exam Present: supple - Routine Respiratory Exam Present: decreased breath sounds, wheezes - Routine Cardiovascular Exam Present: RRR Results - Laboratory Findings Laboratory: Laboratory Results - last 48 hr 04/08/18 04/08/18 04:05 04:05 WBC 13.3 H D RBC 4.48 L Hgb 11.7 L Hct 37.0 L MCV 82.6 MCH 26.1 MCHC 31.6 RDW Std Deviation 46.7 Plt Count 338 MPV 9.7 Immature Gran % (Auto) Not performed Neut % (Auto) Not performed Lymph % (Auto) Not performed [place] % (Auto) Not performed Eos % (Auto) Not performed Baso % (Auto) Not performed Neut # (Auto) Not performed Lymph # (Auto) Not performed [place] # (Auto) Not performed Eos # (Auto) Not performed Baso # (Auto) Not performed Abs Immat Gran (auto) Not performed Neutrophils % (Manual) 96.0 H Lymphocytes % (Manual) 4.0 L Neutrophils # (Manual) 12.8 H Lymphocytes # (Manual) 0.5 L RBC Morph Comment Normal Turbidity < 20 Sodium 141 Potassium 3.8 Chloride 101 Carbon Dioxide 29 Anion Gap 11 BUN 24.0 H Creatinine 0.8 GFR Calculation 95 BUN/Creatinine Ratio 30 H Glucose 166 H Calculated Osmolality 279 Calcium 9.4 Magnesium 2.2 Icterus Index < 2 Lactate Dehydrogenase 450 Specimen Hemolysis < 15 Assessment and Plan (1) Non-small cell cancer of right lung Status: Acute Assessment and plan: 1. Lung mass - This patient has an abnormal CT scan demonstrating: large right hilar mass lesion. It appears to surround and narrow the RUL bronchus. The bulk of the tumor is posterior and abuts the spine. The right main pulmonary artery courses through the tumor, but appears to be patent. There are innumerable subcentimeter nodules throughout the right lung and to a lesser degree the left lung as well. The findings from bronchoscopy show extensive NSCLCA (AdenoCA) with distant mets local invasion, particularly in the RUL. Under Dr Luo's care at this time. Ok to dismiss home from pulm viewpoint. we will follow as an outpatient Current Visit: Yes (2) COPD (chronic obstructive pulmonary disease) Status: Acute Assessment and plan: Chronic obstructive pulmonary disease - After reviewing this patient's subjective and objective findings, including history, examination, PFT, and imaging studies, I believe this patient has moderate COPD with FEV1 60 %. GOLD Stage B and is Moderate risk for exacerbation or complications related to COPD. He is worsened by RUL obstruction from carcinoma. We sent Rx's for neb treatments to have at home, however the mail order company did not fulfill the order which is why the treatments were not delivered to him. He needs a new Rx for a neb machine as well as albuterol/iprat QID, budesonide BID. We will get his nebs ordered through [facility] [place] and will see him as an outpatient for O2 check. check exercise oximetry prior to dismissal Current Visit: Yes - Time Spent With Patient Total time spent is greater than 50% in coordination of care (as documented) at patient's floor/unit and/or counseling patient: less than 15 minutes
[2018-04-09 09:21] VITALS: BP 121/69
[2018-04-09] MEDS: FOLIC ACID 1 MG TABLET PO SCH (09:57)
[2018-04-09] MEDS: GUAIFENESIN/D-METHORPHAN 600mg/30mg TABLET PO SCH (09:57)
--- NOTE | 2018-04-09 10:42 | Discharge Summary ---
Discharge Information Date of admission: 04/06/18 15:57 Anticipated date of discharge: 04/09/18 Attending Physician: Donn Blanton MD Primary care physician: Rubin Reid MD Consults: 04/08/18 11:40 Physician Consult Consulting Provider: Trent Garsia Reason For Exam: lung cancer Acute respiratory failure with hypoxia Stage 4 lung cancer - significant narrowing of the right mainstem secondary to tumor bronchus Postobstructive pneumonitis/pneumonia SIRS: Tachypnea/Tachycardia/Leukocytosis (resolved) Anemia COPD, moderate with FEV1 60%, GOLD stage B with moderate risk. GERD Diverticular disease Prostate cancer (Tolstoy Score 6 - on active surveillance. (PSA 3.8 on 10/06) Tubular adenoma with low grade dysplasia Hyperlipidemia - Laboratory Labs: 04/08/18 04:05 04/08/18 04:05 - Microbiology Microbiology 04/06/18 13:45 Peripheral/Iv Start Blood Culture - Preliminary No Growth After 2 Days 04/06/18 13:31 Peripheral/Iv Start Blood Culture - Preliminary No Growth After 2 Days - Radiology Radiology: Date of Exam: 04/06/18 Type of Exam(s): CT angio pulm emboli Reason for Exam(s): Hypoxia, tachycardia, new dx lung CA Findings: Pulmonary arteries: Exam is diagnostic to the subsegmental pulmonary arterial level. No filling defects identified to suggest a pulmonary embolus. Right hilar mass with postobstructive atelectasis/pneumonia has increased in size with numerous surrounding small satellite masses, groundglass opacity in the small right effusion. This area measures 11.5 x 8.2 cm on axial image #35 compared to 8.4 x 7.2 cm when measured at a similar level on the comparison study. Multiple metastatic nodules seen in the left lower lobe and left upper lobe grossly stable. No pneumothorax. There is compression of the right mainstem bronchus and occlusion of several right lower lobe bronchi. No axillary adenopathy. Right hilar adenopathy. Heart size is stable. Small pericardial effusion. The upper abdomen shows no acute findings. Impression: No pulmonary embolus. Enlarging right hilar mass with right lower lobe postobstructive atelectasis/pneumonia and pulmonary and mediastinal chanel metastatic disease. Date of Exam: 04/07/18 Type of Exam(s): CT limited,localized follow-up Reason for Exam(s): lung cancer Findings: Lungs and airways: Bilateral upper lobe predominant paraseptal emphysema. Grossly unchanged large right hilar mass extending into the right middle and lower lobes with post obstructive atelectasis/pneumonitis within the right lower lobe and significant narrowing of the right mainstem bronchus. No endoluminal lesion. Unchanged scattered small pulmonary nodules. Pleura: Trace loculated right pleural effusion. No pneumothorax. Heart and mediastinum: The visualized thyroid gland appears normal. Unchanged prominent right superior retrotracheal lymph node on axial image 32. Unchanged prominent right lower paratracheal lymph node on axial image 53. The visualized esophagus appears normal. The heart is normal in size without pericardial effusion. Coronary arterial and thoracic aortic atherosclerotic calcifications. The great vessels of the thorax are otherwise within normal limits. Abdomen: No acute abnormality of the visualized upper abdominal organs. Osseous structures and soft tissues: No axillary lymphadenopathy. No acute osseous abnormality. No suspicious osteolytic or osteoblastic lesions. Impression: 1. Redemonstration of a large right hilar mass extending into the right middle and lower lobes with significant narrowing of the right mainstem bronchus and postobstructive atelectasis/pneumonitis within the right lower lobe. 2. Unchanged scattered small pulmonary nodules and prominent right paratracheal lymph nodes. 3. Trace loculated right pleural effusion. --- History of Present Illness HPI: 72-year-old male, seen recently as new patient for non-small cell lung cancer has received education on anticipated treatment with carboplatin/Keytruda/Alimta , which was to begin next week. Over the weekend had significant increase in dyspnea, increased cough, and air hunger. Spoke with Dr. Luo; instructed to come to the ER. Pt states "I felt like I was waterboarded." He reports he has had sxs for the past month or more, but they significantly worsened last night and "I wasn't sure if I was going to make it through the night." States Dr. Luo was planning to start chemo this week. Noted to have elevated white count , no bandemia, no lactate, but new hypoxia requiring oxygen. Found to have post obstructive pneumonia, admitted for supportive care and continued evaluation. He has a prostate nodule and a PSA which continues to rise and reports he has an upcoming appt with Dr. Berrios regarding this. At time of intake, he is sitting in a chair. Subjectively verbalizes improved with steroids and antibiotics. Has been seen by radiation oncologist, Dr. Spring; planning to begin radiation therapy. History of Present Illness --Prostate cancer Reinier score 6 currently on active surveillance. September PSA 3.8 --03/05/18: CT scan showing mass in the right lower lobe. --03/14/18: PET scan showing uptake in the primary mass, mediastinal nodes, supraclavicular node, other lung nodules and indeterminate uptake in the left posterior iliac region. --03/20/18: Bronchoscopy with biopsy showing a moderately differentiated adenocarcinoma Objective Vital signs: Temperature 95.9 F L 04/09/18 00:00 Pulse Rate 112 H 04/09/18 09:21 Respiratory Rate 20 04/09/18 09:21 Blood Pressure 121/69 04/09/18 09:21 Pulse Oximetry 95 04/09/18 09:21 Height/Weight/BMI: Height 6 ft Weight 195 lb 15.855 oz Body Mass Index 26.4 Comments: Patient is sitting in his recliner, eager for discharge home. Still requiring 2L NC to maintain SAO2. - Constitutional Present: no acute distress, well nourished, well developed, cooperative - Routine HEENT Exam Head: Present: normocephalic, atraumatic Eye: Present: PERRL. Absent: conjunctival icterus - Routine Respiratory Exam Present: decreased breath sounds, wheezes. Absent: respiratory distress Comments: Breathing easily on 2L NC without cough or distress. - Routine Cardiovascular Exam Present: RRR - Routine Abdominal Exam Present: soft, normoactive bowel sounds, non tender - Routine Extremities Exam Present: full ROM, pulses intact Comments: SCDs in place. - Routine Back/Spine/Pelvis Exam Back/Spine: Present: full ROM. Absent: vertebral tenderness - Routine Musculoskeletal Exam Musculoskeletal: Present: moving extremities well - Routine Skin Exam Present: intact, dry, warm Comments: afebrile. - Routine Neurological Exam Present: alert, oriented X3, moving all extremities, hearing grossly intact, normal speech - Routine Lymphatic Exam Lymphatic: Absent: lymphedema - Routine Psychiatric Exam Present: cooperative Hospital Course This is a general summary of the patient's hospital course. For more details refer to the complete medical record. Hospital course: 04/06/18 Admit, IP. Expect LOS to exceed 2 overnights given his acute resp failure requiring O2 and his underlying lung cancer and COPD. CTA chest from ER reviewed. Solu-Medrol 125mg IV and Levaquin 750mg IV given in ER in addition to DuoNeb treatment. Continue Solu-Medrol and Levaquin. Continue with DuoNeb, Budesonide, O2. Consult to Dr. Luo for oncological evaluation and treatment recommendations. With significant tumor burden at right mainstem bronchus, doubt any gain gain be made without oncological intervention. IVF of 1/2NS for hydration and to provide renal protection secondary to IV contrast. Labs in am - CBC, CMP, LDH and uric acid. SCD's for VTE ppx. Full Code. Dr Reid - PCP. Dr. Luo - Onc. 04/07/[address] CT chest follow up" and first radiation treatment today. CT remains significant for large R hilar mass extending into the right middle/ lower lobes with significant narrowing of the R mainstem bronchus and postobstructive atelectasis/pneumonitis within the RLL. Continue IVF's for renal protection secondary to repeat IV dye use as pt had CTA performed yesterday as well. Consider DC IVF's later today or tomorrow as he has good renal function and is taking po well. Leukocytosis resolved 13.2-->8.1. BMP stable. Remains tachycardic. Other vitals stable. On room air this afternoon. (Not on home O2). Day 2 of Levaquin and methylprednisolone. Seen and evaluated by Dr. Garsia (pulm) who agreed with treatment plan. Very encouraging that radiation able to be started-critically needed secondary to tumor location. Can stop IVF. Monitor lab. Continue with supportive care. 04/08/18 Continuing with Levaquin and Solu-Medrol, weaning down on O2 as able. Patient does not use oxygen at home. Seen and evaluated by Dr. Luo who recommended continuing with supportive care , radiation treatment. Will hold on chemotherapy as this may increase edema that may worsen breathing. Patient will most likely need home nebulizer at time of discharge. Case management working on obtaining one for patient. Per Dr. Garsia: Seen and evaluated by Dr. Garsia (pul) who agreed with treatment plan. Patient believed to have moderate COPD with FEV1 60 %. GOLD Stage B and is Moderate risk for exacerbation or complications related to COPD. He is worsened by RUL obstruction from carcinoma. Rx's for neb treatments to have at home, however the [facility] did not fulfill the order which is why the treatments were not delivered to him. He needs a new Rx for a neb machine as well as albuterol/iprat QID, budesonide BID. We will get his nebs ordered through [facility] and will see him as an outpatient for O2 check. 04/09/18 Anticipate discharge home today. Case management obtained nebulizer for patient. Ambulatory oxygen levels remained stable. No need for home oxygen at this time. Will continue Levaquin 750mg daily through 04/13/18. Prednisone 40mg x 5 days for pulmonary inflammation. Encouraged patient to follow up with Dr. Garsia, Dr. Luo and his PCP within the next week to monitor for improvement. Time spent with patient: greater than 35 minutes Resuscitation Status: Full Code Discharge Plan - Discharge Disposition Disposition: Discharged Home, Self-Care *Condition: Improved Reason For Visit (Visit label in EMR): lung CA, Plst obstructive pneumonia/ pneumonitis - Discharge Medications Medication Comments: Levaquin: 750mg daily, 04/07/18-04/13/18. DuoNeb: 3mL aerosol Q4H as needed and scheduled. Pulmicort: 0.5mg aerosol twice daily. Folic acid: 0.5mg orally daily. Mucinex DM: 1 tab orally twice a day for cough and sputum production. Prilosec: 20mg orally with breakfast daily. Simvastatin: 40mg orally at bedtime for hypercholesterolemia. Ultram: 50mg orally every 4 hours as needed for pain. *Discharge Medications: New Albuterol/Ipratropium [Duoneb] 3 ml AEROSOL Q4HR #120 each Acetaminophen [Tylenol] 650 mg PO Q5H PRN tab PRN Reason: Discomfort Albuterol/Ipratropium [Duoneb] 3 ml AEROSOL Q4H PRN #120 each PRN Reason: Shortness Of Air Folic Acid [Folate] 0.5 mg PO DAILY #30 tab Guaifenesin/Dm [Mucinex Dm] 1 tab PO BID #30 tab PredniSONE [Deltasone 20 mg] 40 mg PO WB 5 Days #10 tab Levofloxacin [Levaquin] 750 mg PO DAILY 4 Days #4 tab Continue diphenhydrAMINE HCl [Benadryl] 25 mg PO HS #0 cap Simvastatin [Zocor] 40 mg PO HS Hydrocodone/Chlorphen P-Stirex [Hydrocodone-Chlorphen ER Susp] 5 ml PO BID PRN PRN Reason: Prn Orders Tramadol [Ultram] 50 mg PO Q4HR PRN PRN Reason: Pain Albuterol Sulfate [Proair Hfa] 2 puff INH TID PRN #0 PRN Reason: Shortness Of Air Tiotropium [place] [Spiriva Respimat] 1 unit INH DAILY #0 Cholecalciferol (Vitamin D3) [Vitamin D3] 1 cap PO DAILY Vitamin B Complex Vit C No.4 [Super B Complex] 150 mg PO DAILY Omeprazole 20 mg PO DAILY Discontinued Folic Acid 0.4 mg PO DAILY Amoxicillin 875 mg PO BID - Discharge Packet/Instructions *Diet: Regular *Activity: As tolerated *Pain Management/Treatment: Tylenol 650mg every 4-6 hours as needed. Ultram 50mg every 4 hours as needed. *Wound Care: None Additional Instructions: Follow up with Dr. Reid. Call today to schedule appointment. Follow up with Dr. Garsia within the next week. Call today to schedule an appointment. Follow up with Dr. Luo as directed. Call today to schedule. Continue Levaquin 750mg daily starting on 04/10/18 through 04/13/18 to complete treatment course. Continue home medications as directed. Return to ED or call your doctor if you have any questions, concerns, increased shortness of breath or changes in clinical condition. *Expected Signs/Symptoms: Gradual improvement in breathing. *Notify Physician if: fever >101, increased shortness of breath, chest pain, change or worsening of condition or additional questions/concerns. *During Business Hours Contact: Dr. Reid at [phone] Garsia at [phone] Luo at [phone]. *After Business Hours Contact: the on-call physician(s) for either Dr. Reid at [phone] Garsia at [phone] Luo at [phone] or the closest emergency department. *Pending Lab/Results: No Pending Lab - Referrals/Follow Up *Referrals/Follow Up: Rubin Reid MD [Primary Care Provider] - 1 Week (Patient to call and schedule.) Ritesh Luo MD [Physician] - 1 Day (Patient to call and schedule appointment as directed.) Trent Garsia MD [Physician] - 1 Day (Patient to call and schedule appointment as directed.) - Patient Handouts Patient Handouts: Lung Cancer (GEN), Hypoxia (GEN) - Dismissal Complete Discharge Instructions are:: Complete Physician Narrative - Narrative Attestation Narrative: Date: 04/09/18 Time: 1037 I personally assessed and examined patient, and agree with the above discharge summary. Today, pt feeling well, really hoping to go home. He was able to be weaned off O2, and passed his exercise oximetry test. Coarse breath sounds right base. RRR. No LE edema. Discharge pt to home on another 5 days of levaquin, along with a 3 day course of prednisone 40mg daily. Continue radiation tx per radiation oncology. Follow up with PCP in 1 week or earlier if needed.
[2018-04-09 11:51] VITALS: PULSE 104; O2SAT 93
[2018-04-09 12:10] VITALS: RESP 16
== END 2018-04-09 13:45 | disposition home or self-care (01) | DRG 193 ==
LOC: ED 13:01 → SUATTDRO 15:57 → EDHOLD 15:57 → MED 16:30
PROVIDERS: ADMIT Hospitalist; ATTEND Family Medicine